=== PATIENT | female | born 1965 | race Caucasian/White ===

== ENCOUNTER 2016-10-22 09:05 | Emergency (ER) | payer OTHER ==
[~2016-10-22] VITALS: Ht 165.1 cm; Wt 111.9 kg
[~2016-10-22 09:05] MED LIST: ALBUAER2 INH; ASPCH81 PO; LSN/2025 PO; MELO15TA3 PO; MULT-506 PO; PRLSR20 PO
[2016-10-22 09:10] VITALS: TEMP 36.6; Ht 165.1 cm; Wt 111.9 kg
--- NOTE | 2016-10-22 09:53 | DIAGNOSTIC IMAGING REPORT ---
RIGHT FOOT MIN 3 VIEWS ROUTINE CLINICAL HISTORY: Right foot pain status post trauma COMPARISON: None. DISCUSSION: No acute fractures or dislocations are visualized. There are osteoarthritic changes present at the level of the first metatarsal phalangeal joint. IMPRESSION: No acute fractures or dislocations identified. Electronically signed by: Ron Oscar M.D. 10/22/2016 9:51 AM Dictated Date/Time: 10/22/2016 9:51 AM
--- NOTE | 2016-10-22 09:54 | DIAGNOSTIC IMAGING REPORT ---
RIGHT ANKLE MIN 3 VIEWS ROUTINE CLINICAL HISTORY: R ankle A09 Right trauma. Pain. COMPARISON: None. DISCUSSION: Mild soft tissue edema. No acute bony abnormality. Cortical margins are intact. No abnormal depressed reaction. IMPRESSION: Mild soft tissue edema. No acute bony abnormality. Electronically signed by: Juan Marvin M.D. 10/22/2016 9:52 AM Dictated Date/Time: 10/22/2016 9:52 AM
--- NOTE | 2016-10-22 09:54 | DIAGNOSTIC IMAGING REPORT ---
LEFT INDEX FINGER 3 VIEWS HISTORY: Left 2nd finger injury A09 COMPARISON: None. FINDINGS: There is no fracture or dislocation. Soft tissues are unremarkable. No radiopaque foreign bodies. IMPRESSION: No fractures. Electronically signed by: Chandana Mitchell M.D. 10/22/2016 9:52 AM Dictated Date/Time: 10/22/2016 9:51 AM
--- NOTE | 2016-10-22 10:26 | EMERGENCY ROOM VISIT NOTE ---
History First contact with patient: 09:21 Chief Complaint: FOOT PAIN Stated Complaint: RIGHT FOOT/ LEFT POINTER FINGER PAIN History of Present Illness The patient is a 51 year old female who presents to the Emergency Room via private vehicle accompanied by male with complaints of "right foot/left pointer finger pain". The patient states that at 3:45 PM yesterday evening she was at [employer], where she is employed. She states she was at the large warehouse filling in order, when there was a picture on the floor and she actually tripped over it fell forward inverting her right ankle and striking her left index finger. She states since then the lateral region of the right ankle has been very painful as well as the second PIP of the left hand. At this time she declines anything for pain. She notes her tetanus is up-to-date. She rates the right ankle pain is a 15/10. She denies any loss of consciousness, striking her head, other injuries, chest pain, shortness of breath, fevers, chills, abdominal pain. Review of Systems A complete 6-point Review of Systems was discussed with the patient, with pertinent positives and negatives listed in the History of Present Illness. All remaining Review of Systems questions can be considered negative unless otherwise specified. Past Medical/Surgical History High blood pressure Family History Diabetes, high blood pressure Social History Smoking Status: Current Every Day Smoker Alcohol Use: none Marital Status: Occupation Status: employed Social History: Patient is currently employed, admits to tobacco use and denies alcohol use Current/Historical Medications No Active Prescriptions or Reported Meds Allergies Coded Allergies: Penicillins (Verified Allergy, Unknown, 10/22/16) Meperidine (Verified Adverse Reaction, Unknown, WHILE YOUNGER: DELERIUM, CONFUSION, 10/22/16) Physical Exam Vital Signs Date Time Temp Pulse Resp B/P Pulse Ox O2 Delivery O2 Flow Rate FiO2 10/22/16 11:00 64 20 187/100 98 10/22/16 09:10 36.6 69 18 183/109 97 Room Air Physical Exam VITAL SIGNS - Vital signs and nursing notes were reviewed. Patient is noted to be hypertensive. GENERAL -51-year-old female appearing her stated age who is in no acute distress. Communicates well with provider and answers questions appropriately. SKIN - there is evidence of a healing scrape/abrasion noted to the right lateral malleolus. No active bleeding. HEAD - NC/AT. EYES - Sclera anicteric. Palpebral conjunctiva pink and moist with no injection noted. NECK - Neck with FROM. No evidence of neck injury. EXTREMITIES - No clubbing or peripheral cyanosis. No pretibial edema present. Patient is vascular intact in the left upper extremity, in the right lower extremity. There is tenderness to palpation overlying the left second PIP. There is full range of motion of this region. Tenderness is localized to the PIP. In regard to the right ankle, there is tenderness to palpation overlying the right lateral malleolus extending into the midfoot. There is no proximal tenderness. There is edema noted at the posterior, lateral malleolus of the right ankle. Neurovascularly intact in these regions. +5/5 strength noted in UE/LE bilaterally. Medical Decision & Procedures ER Provider Diagnostic Interpretation: RIGHT FOOT MIN 3 VIEWS ROUTINE CLINICAL HISTORY: Right foot pain status post trauma COMPARISON: None. DISCUSSION: No acute fractures or dislocations are visualized. There are osteoarthritic changes present at the level of the first metatarsal phalangeal joint. IMPRESSION: No acute fractures or dislocations identified. Electronically signed by: Ron Oscar M.D. 10/22/2016 9:51 AM Dictated Date/Time: 10/22/2016 9:51 AM RIGHT ANKLE MIN 3 VIEWS ROUTINE CLINICAL HISTORY: R ankle A09 Right trauma. Pain. COMPARISON: None. DISCUSSION: Mild soft tissue edema. No acute bony abnormality. Cortical margins are intact. No abnormal depressed reaction. IMPRESSION: Mild soft tissue edema. No acute bony abnormality. Electronically signed by: Juan Marvin M.D. 10/22/2016 9:52 AM Dictated Date/Time: 10/22/2016 9:52 AM LEFT INDEX FINGER 3 VIEWS HISTORY: Left 2nd finger injury A09 COMPARISON: None. FINDINGS: There is no fracture or dislocation. Soft tissues are unremarkable. No radiopaque foreign bodies. IMPRESSION: No fractures. Electronically signed by: Chandana Mitchell M.D. 10/22/2016 9:52 AM Dictated Date/Time: 10/22/2016 9:51 AM Medical Decision Patient was seen and evaluated as above. Patient was noted to be hypertensive and this was discussed with the patient. She declined workup for the high blood pressure at this time and notes that she has a diagnosis of hypertension but has not taken her medications lately. In regard to the injuries, I do believe that radiographs are warranted. X-rays were obtained of the left index finger, right ankle and right foot. Results as above. I agree with radiologist findings. There are no acute fractures visualized. Secondary to the patient's degree of tenderness I do believe that splinting for potential occult fracture is warranted. She is provided with a metal splint on left finger and after thorough discussion she was also provided with a fracture boot. Because of the tenderness in the ankle and foot I do not believe a gel ankle splint with a postop shoe be appropriate and is more of a fall risk. For this reason, the fracture boot was utilized. She was instructed to remain nonweightbearing on this region. She stated that she had crutches at home which she may use which I believe is appropriate. She was instructed to follow- up with orthopedics and her prove Workmen's Compensation group. She was educated upon management of today's findings, was educated upon worrisome symptoms in which to return, she had questions answered prior to discharge and was discharged home in good condition. Prior to the patient being discharged I did again ask her if I may perform a workup regarding the hypertensive state and she declined, and I indicated that having blood pressure of this level is not healthy. The patient did not want anything for pain. In the evaluation and treatment of this patient the following differential diagnoses were entertained: Left finger contusion, left index finger fracture, right ankle fracture, right ankle sprain, foot sprain, fracture, among others. Impression Primary Impression: Fall Additional Impressions: Foot pain Injury of index finger Departure Information Dispostion Home / Self-Care Condition GOOD Prescriptions No Active Prescriptions or Reported Meds Referrals No Doctor, Assigned (PCP) Kenton Jonas D.O. Patient Instructions My [facility] Additional Instructions You have been treated in the Emergency Department for a Left index finger pain and right foot/ankle pain. For pain control, you can use the following [id number] medicines (if >12 yo): - Regular strength (325mg/tab) Tylenol (acetaminophen) 2 tabs every 4-6 hours as needed. Do not exceed 12 tablets in a 24 hour period. Avoid taking more than 4 grams (4000 mg) of Tylenol per day. This includes any other sources of acetaminophen you may take on a regular basis. - Regular strength (200 mg/tab) Advil (ibuprofen) 1-2 tabs every 4-6 hours as needed. Do not exceed a dose of 3200 mg per day. If this is a recent injury (<24 hrs), ice can be applied to the area of pain for the first 3 days to help decrease pain and inflammation. You have been provided the number for an Orthopaedic Surgeon. You should call this number as soon as possible to establish a follow-up visit from today's Emergency Department visit. (Dr. Jonas) Please follow-up with your approved Workmen's Compensation individual regarding today's visit. Keep the ankle brace/splint in place until cleared by Orthopedics and finger splint. Use the crutches you have to keep ALL weight off of the ankle until weight bearing is tolerable. Return to the Emergency Department if your current symptoms worsen despite treatment course outlined above, or if you develop any of the following symptoms : intractable pain despite aforementioned treatment course or new onset of numbness or tingling of the foot. As we discussed please follow up your blood pressure. Please contact your family doctor later today to schedule follow-up. Please return to the emergency department with any new/concerning symptoms. Problem Qualifiers
[2016-10-22 11:00] VITALS: BP 187/100; PULSE 64; O2SAT 98
== END 2016-10-22 11:00 | disposition home or self-care (01) ==
LOC: C.EDB 09:07 → C.EDA 11:00
DX: M79.671 Pain in right foot (principal); S69.92XA Unspecified injury of left wrist, hand and finger(s), initial encounter; W18.09XA Striking against other object with subsequent fall, initial encounter; Y99.0 Civilian activity done for income or pay; F17.200 Nicotine dependence, unspecified, uncomplicated

== ENCOUNTER 2017-08-27 13:52 | Emergency (ER) | payer OTHER ==
[~2017-08-27] VITALS: Ht 165.1 cm; Wt 117.3 kg
[2017-08-27 13:54] VITALS: TEMP 36.6; Ht 165.1 cm; Wt 117.3 kg
[2017-08-27] MEDS ORDERED: XYLOCAINE 1%/SOD BICARB 20 ML VIAL INFIL ONE (14:15)
[2017-08-27] MEDS ORDERED: DIPHTHERIA/TETANUS/PERTUSSIS 0.5 ML SYR/VIAL IM. ONE (14:15)
--- NOTE | 2017-08-27 14:36 | EMERGENCY ROOM VISIT NOTE ---
ED Visit Note First contact with patient: 14:02 CHIEF COMPLAINT: Right Hand laceration HISTORY OF PRESENT ILLNESS: This 51-year-old female presents the ER with chief complaint of a laceration to her right hand which is located just between her thumb and index finger. The patient states she was at work and was ripping open boxes when she grabbed the corner of the box and ripped it open and felt something sharp go into her right hand. The patient states it is still bleeding. The patient denies any numbness and tingling in her fingers. The patient is right-hand dominant. The patient's tetanus is not up-to-date. REVIEW OF SYSTEMS: 6 system review was performed and was negative unless stated otherwise in history of present illness. PMH: The patient is healthy; hypertension, cholecystectomy SOCIAL HISTORY: Patient lives with her boyfriend. The patient admits to tobacco use but denies any alcohol use. PHYSICAL EXAM: Vital Signs: Were reviewed Reviewed Nurse's notes. GENERAL: 51- year-old white female appears in no acute distress. MENTAL Status: Alert and oriented 3. RIGHT HAND: There is a 3 cm long laceration on the webspace between the thumb and index finger. The edges are gaping widely apart. There is no foreign material in the wound and it looks clean. There is moderate active bleeding. No deep structures such as tendons or nerves are seen in the base of the wound. Extension and flexion of the fingers is full and strong. Sensation to pain and light touch is intact. EMERGENCY DEPARTMENT COURSE: The patient was evaluated. Adacel was given. PROCEDURE:Wound Repair: Complexity: Basic. Verbal consent was obtained after the risks and benefits were explained, including but not limited to bleeding, scarring, infection, pain, and bone/joint /nerve damage. The skin was prepped with betadine and a sterile field set. The wound was anesthetized with 3.0 ml of 1% buffered lidocaine. With direct pressure the bleeding subsided. Copious irrigation was performed using sterile saline. The wound was explored for foreign bodies and none found. Debridement was not performed. The wound edges were approximated using 5-0 Ethilon with 6simple interrupted sutures. Hemostasis and excellent approximation was achieved. Antibacterial ointment and a sterile dressing applied. Detailed wound care instructions and signs and symptoms of infection reviewed with the patient. No complications and the patient tolerated the procedure well. DIAGNOSIS: 3 cm right Hand laceration DISCHARGE INSTRUCTIONS & TREATMENT: Keep wound clean and dry. No water on the area for 12-24 hrs then no soaking until sutures removed. Do not allow any crusting or dried blood to accumulate on sutures. If this occurs, use a 1:1 solution of hydrogen peroxide/water on a Q-tip to clean the wound. Use an antibiotic ointment for 3-4 days, then let wound dry. Suture removal in 10 days. Follow up sooner for any signs of infection (increasing redness, swelling , drainage). Ice and elevate for swelling and pain. Tylenol 650 mg every 6 hrs for pain. Wear gloves while you are cleaning. Current/Historical Medications No Active Prescriptions or Reported Meds Allergies Coded Allergies: Penicillins (Verified Allergy, Unknown, 10/22/16) Meperidine (Verified Adverse Reaction, Unknown, WHILE YOUNGER: DELERIUM, CONFUSION, 10/22/16) Vital Signs Date Time Temp Pulse Resp B/P (MAP) Pulse Ox O2 Delivery O2 Flow Rate FiO2 08/27/17 13:54 36.6 82 17 202/117 96 Room Air Departure Information Prescriptions No Active Prescriptions or Reported Meds Referrals No Doctor, Assigned (PCP) Patient Instructions My [facility]
[2017-08-27 14:43] VITALS: BP 157/89; PULSE 84; O2SAT 98
== END 2017-08-27 14:45 | disposition home or self-care (01) ==
LOC: C.EDB 13:53 → C.EDD 14:45
DX: S61.411A Laceration without foreign body of right hand, initial encounter (principal); W45.8XXA Other foreign body or object entering through skin, initial encounter; Y99.0 Civilian activity done for income or pay; Y92.89 Other specified places as the place of occurrence of the external cause; Y93.89 Activity, other specified; Z23 Encounter for immunization; I10 Essential (primary) hypertension; Z90.49 Acquired absence of other specified parts of digestive tract; Z72.0 Tobacco use

== ENCOUNTER 2017-10-14 12:34 | Emergency (ER) | payer SELFPAY ==
[~2017-10-14] VITALS: Ht 165.1 cm; Wt 111.0 kg
[2017-10-14 12:37] VITALS: TEMP 36.7; Ht 165.1 cm; Wt 111.0 kg
[2017-10-14] MEDS ORDERED: SODIUM CHLORIDE 0.9% 1000ML 1,000 ML IV STA ×2 (13:07→14:07)
--- NOTE | 2017-10-14 13:11 | EMERGENCY ROOM VISIT NOTE ---
History Report prepared by Cynthia: Kvng Rankin Under the Supervision of: Chyna BeauchampO. First contact with patient: 12:51 Chief Complaint: FLU LIKE SX Stated Complaint: FLU LIKE SYMPTOMS, DIZZY,NAUSEA,COUGH History of Present Illness The patient is a 51 year old female who presents to the Emergency Room with complaints of worsening flu like symptoms for the past 4 days. The patient states that she has been nauseous, achy, feverish, and dizzy. She also notes that she has been having diarrhea for the past 3 days which has been getting better, and there were no bloody stools. She notes that she vomited once after eating a grilled cheese. The patient states that she has been able to keep liquids down, and she has been able to eat toast and apple sauce. She also reports that last night she went into the kitchen and "woke up on the kitchen floor". The patient states that she has been having some congestion as well. She reports that she has multiple sick contacts at work, and she states that she did not get a flu shot this year. The patient denies any other medical problems. Source of History: patient Onset: 4 days ago Position: other (global) Quality: other (flu like symptoms) Timing: worsening Associated Symptoms: + fevers, + nausea, + vomiting, + diarrhea Note: Associated symptoms: achy and dizzy Review of Systems See HPI for pertinent positives & negatives. A total of 10 systems reviewed and were otherwise negative. Past Medical & Surgical Medical Problems: (1) HTN (hypertension) Family History Diabetes mellitus FHx: cancer Gallbladder disease Heart disease Hypertension Kidney disease Kidney stones Seizures Social History Smoking Status: Current Every Day Smoker Alcohol Use: none Marital Status: Occupation Status: employed Current/Historical Medications No Active Prescriptions or Reported Meds Allergies Coded Allergies: Penicillins (Verified Allergy, Unknown, 10/14/17) Meperidine (Verified Adverse Reaction, Unknown, WHILE YOUNGER: DELERIUM, CONFUSION, 10/14/17) Physical Exam Vital Signs Date Time Temp Pulse Resp B/P (MAP) Pulse Ox O2 Delivery O2 Flow Rate FiO2 10/14/17 16:42 65 18 131/76 96 10/14/17 15:01 122/70 10/14/17 15:00 66 17 95 Room Air 10/14/17 14:31 127/85 10/14/17 14:30 68 17 92 Room Air 10/14/17 14:00 78 17 131/90 94 Room Air 10/14/17 12:37 36.7 101 18 100/68 95 Physical Exam GENERAL: alert, well appearing, well nourished, no distress, non-toxic EYE EXAM: normal conjunctiva, PERRL and EOM's grossly intact OROPHARYNX: no exudate, no erythema, lips, buccal mucosa, and tongue normal and mucous membranes are very dry NECK: supple, no nuchal rigidity, no adenopathy, non-tender LUNGS:Slightly diminished breath sounds. No wheezes rhonchi or rales. HEART: no murmurs, S1 normal and S2 normal ABDOMEN: abdomen soft, non-tender, normo-active bowel sounds, no masses, no rebound or guarding. BACK: Back is symmetrical on inspection and there is no deformity, no midline tenderness, no CVA tenderness. SKIN: no rashes and no bruising UPPER EXTREMITIES: upper extremities are grossly normal. LOWER EXTREMITIES: No pitting edema. NEURO EXAM: Normal sensorium, cranial nerves II-XII grossly intact, normal speech, no gross weakness of arms, no gross weakness of legs. Medical Decision & Procedures ER Provider Diagnostic Interpretation: Radiology results have been interpreted by the radiologist and reviewed by me. ABDOMEN 2VIEW W/PA CHEST RTN CLINICAL HISTORY: 51 years-old Female presenting with nausea and dizziness, flulike symptoms, cough. TECHNIQUE: PA view of the chest and supine and upright views of the abdomen were obtained. COMPARISON: 12/17/2011. FINDINGS: Cardiomediastinal silhouette normal. Lungs and pleural spaces clear. Cholecystectomy clips noted. Nonobstructive bowel gas pattern. No gross pneumoperitoneum. Allowing for bowel gas and stool, no calcifications to suggest nephrolithiasis. Osseous structures normal. IMPRESSION: 1. No acute cardiopulmonary disease. 2. No radiographic evidence of acute intra-abdominal pathology. Electronically signed by: Miguel Mcdaniel M.D. 10/14/2017 2:21 PM Dictated Date/Time: 10/14/2017 2:20 PM Laboratory Results 10/14/17 13:20 Red Blood Count 5.89, Mean Corpuscular Volume 84.6, Mean Corpuscular Hemoglobin 30.9, Mean Corpuscular Hemoglobin Concent 36.5, Mean Platelet Volume 10.5, Neutrophils (%) (Auto) 49.3, Lymphocytes (%) (Auto) 41.1, Monocytes (%) (Auto) 8.9, Eosinophils (%) (Auto) 0.5, Basophils (%) (Auto) 0.1, Neutrophils # (Auto) 3.86, Lymphocytes # (Auto) 3.22, Monocytes # (Auto) 0.70, Eosinophils # (Auto) 0.04, Basophils # (Auto) 0.01 10/14/17 13:20 Test 10/14/17 13:20 10/14/17 13:55 White Blood Count 7.84 K/uL (4.8-10.8) Red Blood Count 5.89 M/uL (4.2-5.4) Hemoglobin 18.2 g/dL (12.0-16.0) Hematocrit 49.8 % (37-47) Mean Corpuscular Volume 84.6 fL (80-100) Mean Corpuscular Hemoglobin 30.9 pg (25-34) Mean Corpuscular Hemoglobin Concent 36.5 g/dl (32-36) Platelet Count 235 K/uL (130-400) Mean Platelet Volume 10.5 fL (7.4-10.4) Neutrophils (%) (Auto) 49.3 % Lymphocytes (%) (Auto) 41.1 % Monocytes (%) (Auto) 8.9 % Eosinophils (%) (Auto) 0.5 % Basophils (%) (Auto) 0.1 % Neutrophils # (Auto) 3.86 K/uL (1.4-6.5) Lymphocytes # (Auto) 3.22 K/uL (1.2-3.4) Monocytes # (Auto) 0.70 K/uL (0.11-0.59) Eosinophils # (Auto) 0.04 K/uL (0-0.5) Basophils # (Auto) 0.01 K/uL (0-0.2) RDW Standard Deviation 39.8 fL (36.4-46.3) RDW Coefficient of Variation 12.9 % (11.5-14.5) Immature Granulocyte % (Auto) 0.1 % Immature Granulocyte # (Auto) 0.01 K/uL (0.00-0.02) Anion Gap 7.0 mmol/L (3-11) Est Creatinine Clear Calc Drug Dose 58.2 ml/min Estimated GFR () 49.4 Estimated GFR (Non- 42.7 BUN/Creatinine Ratio 18.0 (10-20) Calcium Level 9.5 mg/dl (8.5-10.1) Magnesium Level 2.4 mg/dl (1.8-2.4) Total Bilirubin 0.7 mg/dl (0.2-1) Aspartate Amino Transf (AST/SGOT) 82 U/L (15-37) Alanine Aminotransferase (ALT/SGPT) 82 U/L (12-78) Alkaline Phosphatase 147 U/L (45-117) Total Protein 9.0 gm/dl (6.4-8.2) Albumin 4.1 gm/dl (3.4-5.0) Globulin 4.9 gm/dl (2.5-4.0) Albumin/Globulin Ratio 0.8 (0.9-2) Lipase 365 U/L (73-393) Human Chorionic Gonadotropin, Qual NEG (NEG) Influenza Type A Antigen Neg for Influ A (NEG) Influenza Type B Antigen POS for Influ B (NEG) Laboratory results per my review. Medications Administered Medications (Trade) Dose Ordered Sig/Teresa Route Start Time Stop Time Status Last Admin Dose Admin Sodium Chloride 1,000 ml @ 999 mls/hr Q1H1M STAT IV 10/14/17 13:07 10/14/17 14:07 DC 10/14/17 14:00 999 MLS/HR Sodium Chloride 1,000 ml @ 999 mls/hr Q1H1M STAT IV 10/14/17 14:07 10/14/17 15:07 DC 10/14/17 14:19 999 MLS/HR Ondansetron HCl (Zofran Inj) 4 mg NOW STAT IV 10/14/17 14:07 10/14/17 14:08 DC 10/14/17 14:19 4 MG Acetaminophen (Tylenol Tab) 1,000 mg NOW STAT PO 10/14/17 15:22 10/14/17 15:23 DC 10/14/17 15:34 1,000 MG Ondansetron HCl (ZOFRAN ODT 4MG Home Pack) 1 homepack UD ONCE PO 10/14/17 16:30 10/14/17 16:31 DC 10/14/17 16:37 1 HOMEPACK ECG Per My Interpretation Indication: nausea Rate (beats per minute): 74 Rhythm: normal sinus Findings: no acute ischemic change, no ectopy, other (Normal intervals. Normal axis) ED Course 1251: The patient was evaluated in room B4. A complete history and physical exam was performed. 1307: Sodium Chloride 1000 ml @ 999 mls/hr IV 1407: Zofran 4mg IV, Sodium Chloride 1000 ml @ 999 mls/hr IV 1438: I reevaluated the patient, and she was feeling better. She feels like she has more of an appetite. 1508: I reevaluated the patient and updated her on the results. 1522: Tylenol 1000mg PO 1620: Upon reevaluation, the patient is feeling better. I discussed the findings and the treatment plan with the patient. She verbalizes agreement and understanding. She was discharged home. 1630: Zofran ODT 4mg Home Pack PO Medical Decision Differential diagnosis: Etiologies such as viral syndrome, otitis, pharyngitis, pneumonia, influenza, meningitis, urinary tract infection, sepsis, bacteremia, as well as others were entertained. Patient appears clinically dehydrated, and felt improved following IV fluid hydration. Patient able to tolerate p.o. here following medications and IV fluids. Labs and imaging reassuring. Doubt additional underlying GI, cardiac, or vascular pathology. No evidence of pulmonary pathology or symptoms. Patient positive for flu B which is likely the cause of her recent upper respiratory symptoms and GI symptoms. Discussed with her appropriate hydration as patient had not been drinking any water only soda and juice. Discussed diet. Discussed treatment of her symptoms, need for close follow-up with her family doctor as a precaution, symptoms to watch and return for, she verbalized understanding and was agreeable with plan. Doubt bacteremia/sepsis, doubt perforation, GI bleed, doubt other infectious diarrheal illness, patient not immunocompromised and no recent travel or dietary change. Patient with mild abnormality of LFTs which may be reactive given illness, and mild AKA likely secondary to dehydration. Discussed with patient repeat lab work by family doctor to assure that these have returned to normal following improved hydration and improvement of symptoms. Patient verbalized understanding of all this. Medication Reconcilliation Current Medication List: was personally reviewed by me Blood Pressure Screening Patient's blood pressure: Normal blood pressure Impression Primary Impression: Upper respiratory infection Additional Impressions: Dehydration Influenza Diarrhea Elevated LFTs Scribe Attestation The scribe's documentation has been prepared under my direction and personally reviewed by me in its entirety. I confirm that the note above accurately reflects all work, treatment, procedures, and medical decision making performed by me. Departure Information Dispostion Home / Self-Care Prescriptions No Active Prescriptions or Reported Meds Referrals No Doctor, Assigned (PCP) Forms HOME CARE DOCUMENTATION FORM, IMPORTANT VISIT INFORMATION Patient Instructions My [facility] Additional Instructions Please sip clear liquids and frequent intervals to stay well-hydrated. This should primarily be water. You may use the nausea medication as needed. You may use Tylenol and ibuprofen as needed for pain or fevers. If you have any worsening diarrhea, noticed black or bloody stools, develop vomiting, fevers that are not responsive to Tylenol or ibuprofen, develop trouble breathing, worsening cough, worsening headaches, or you have any other new or concerning symptoms, please return the emergency room. Please have your family doctor recheck your kidney numbers and liver numbers as they were mildly elevated today. Problem Qualifiers Primary Impression: Upper respiratory infection URI type: unspecified URI Qualified Codes: J06.9 - Acute upper respiratory infection, unspecified Additional Impressions: Diarrhea Diarrhea type: unspecified type Qualified Codes: R19.7 - Diarrhea, unspecified
[2017-10-14 13:35] LABS: BASO % 0.1 %; BASO ABS # 0.01 K/uL (0-0.2); EOS % 0.5 %; EOS ABS # 0.04 K/uL (0-0.5); HEMATOCRIT 49.8 % (37-47); HEMOGLOBIN 18.2 g/dL (12.0-16.0); IG# 0.01 K/uL (0.00-0.02); LYMPH % 41.1 %; LYMPH ABS # 3.22 K/uL (1.2-3.4); MEAN CELL VOLUME 84.6 fL (80-100); MEAN CORPUSCULAR HEMOGLOBIN 30.9 pg (25-34); MEAN CORPUSCULAR HGB CONC 36.5 g/dl (32-36); MEAN PLATELET VOLUME 10.5 fL (7.4-10.4); MONO % 8.9 %; NEUT % 49.3 %; NEUT ABS # 3.86 K/uL (1.4-6.5); PLATELET COUNT 235 K/uL (130-400); RED CELL DISTRIBUTION WIDTH CV 12.9 % (11.5-14.5); RED CELL DISTRIBUTION WIDTH SD 39.8 fL (36.4-46.3); WHITE BLOOD COUNT 7.84 K/uL (4.8-10.8)
[2017-10-14 13:57] LABS: ALBUMIN 4.1 gm/dl (3.4-5.0); CALCIUM 9.5 mg/dl (8.5-10.1); CREATININE 1.42 mg/dl (0.60-1.20); POTASSIUM 3.6 mmol/L (3.5-5.1)
[2017-10-14] MEDS ORDERED: ONDANSETRON INJ 2 MG/ML 2 ML VIAL IV STA (14:07)
--- NOTE | 2017-10-14 14:22 | DIAGNOSTIC IMAGING REPORT ---
ABDOMEN 2VIEW W/PA CHEST RTN CLINICAL HISTORY: 51 years-old Female presenting with nausea and dizziness, flulike symptoms, cough. TECHNIQUE: PA view of the chest and supine and upright views of the abdomen were obtained. COMPARISON: 12/17/2011. FINDINGS: Cardiomediastinal silhouette normal. Lungs and pleural spaces clear. Cholecystectomy clips noted. Nonobstructive bowel gas pattern. No gross pneumoperitoneum. Allowing for bowel gas and stool, no calcifications to suggest nephrolithiasis. Osseous structures normal. IMPRESSION: 1. No acute cardiopulmonary disease. 2. No radiographic evidence of acute intra-abdominal pathology. Electronically signed by: Miguel Mcdaniel M.D. 10/14/2017 2:21 PM Dictated Date/Time: 10/14/2017 2:20 PM
[2017-10-14 15:01] LABS: INFLUENZA B ANTIGEN POS for Influ B (NEG)
[2017-10-14] MEDS ORDERED: ACETAMINOPHEN 500 MG TAB PO STA (15:22)
[2017-10-14] MEDS ORDERED: ONDANSETRON HOME PACK 4MG OD TAB PO ONE (16:30)
[2017-10-14 16:42] VITALS: BP 131/76; PULSE 65; O2SAT 96
== END 2017-10-14 16:40 | disposition home or self-care (01) ==
LOC: C.EDB 12:36
DX: J06.9 Acute upper respiratory infection, unspecified (principal); E86.0 Dehydration; J10.1 Influenza due to other identified influenza virus with other respiratory manifestations; R19.7 Diarrhea, unspecified; I10 Essential (primary) hypertension; Z83.3 Family history of diabetes mellitus; Z82.49 Family history of ischemic heart disease and other diseases of the circulatory system; Z82.0 Family history of epilepsy and other diseases of the nervous system; F17.200 Nicotine dependence, unspecified, uncomplicated; Z88.0 Allergy status to penicillin; Z88.8 Allergy status to other drugs, medicaments and biological substances